=== PATIENT | male | born 1975 | race Two or more races ===

== ENCOUNTER 2024-01-04 02:21 | Emergency (ER) | payer OTHER ==
[~2024-01-04] VITALS: Ht 182.9 cm; Wt 94.8 kg
[2024-01-04] MEDS ORDERED: CEPHALEXIN500 MG PO (03:21)
== END 2024-01-04 03:40 ==
LOC: ER 02:22
DX: S61.012A Laceration without foreign body of left thumb without damage to nail, initial encounter (principal); W26.0XXA Contact with knife, initial encounter; Y93.G3 Activity, cooking and baking; Y92.010 Kitchen of single-family (private) house as the place of occurrence of the external cause; Y99.9 Unspecified external cause status